=== PATIENT | female | born 1990 | race Caucasian/White ===

== ENCOUNTER 2016-11-29 10:47 | Emergency (ER) ==
[2016-11-29 10:48] VITALS: BMI 36.0
[2016-11-29 10:54] VITALS: BP 124/76; TEMP 95.1
[2016-11-29] MEDS ORDERED: NORFLEX IM STA (11:03)
[2016-11-29] MEDS ORDERED: TORADOL IM STA (11:03)
[2016-11-29 12:03] LABS: BILIRUBIN,URINE Negative (NEGATIVE); KETONES,URINE Negative (NEGATIVE); LEUKOCYTE ESTERASE ,URINE Negative (NEGATIVE); NITRITE,URINE Negative (NEGATIVE); PROTEIN,URINE Negative (NEGATIVE); URINE, BLOOD Negative (NEGATIVE)
[2016-11-29 12:04] LABS: URINE PREGNANCY INTERNAL QC INTERNAL QC VALID
[2016-11-29 12:06] LABS: ADD URINE MICROSCOPIC NO
[2016-11-29 12:08] LABS: BASOPHILS % (AUTO) 0.3 % (0.0-3.0); EOSINOPHILS # (AUTO) 0.1 K/ul (0.0-0.7); EOSINOPHILS % (AUTO) 1.4 % (0.0-7.0); HEMATOCRIT 41.6 % (37.0-47.0); HEMOGLOBIN 13.9 g/dl (12.0-16.0); IMMATURE GRANULOCYTE % (AUTO) 0.4 % (0.0-5.0); LYMPHOCYTES # (AUTO) 2.1 K/uL (0.60-3.4); LYMPHOCYTES % (AUTO) 26.8 (10.0-50.0); MEAN CORPUSCULAR HEMOGLOBIN 31.4 pg (27.0-31.0); MEAN CORPUSCULAR HGB CONC 33.4 (31.8-35.4); MEAN CORPUSCULAR VOLUME 93.9 fl (81.0-99.0); MONOCYTES # (AUTO) 0.4 K/uL (0.4-2.0); MONOCYTES % (AUTO) 4.5 (0-10); NEUTROPHILS # (AUTO) 5.2 K/ul (2.0-6.9); NEUTROPHILS % (AUTO) 66.6; PLATELET COUNT 209 10^3/uL (140-440); RED BLOOD COUNT 4.43 10^6/ul (4.20-5.40); WHITE BLOOD COUNT 7.86 K/ul (4.6-10.2)
[2016-11-29 12:17] LABS: ALBUMIN/GLOBULIN RATIO 1.33; BILIRUBIN,TOTAL 0.27 mg/dL (0.00-1.20); BUN/CREATININE RATIO 12.65; CREATININE 0.79 mg/dL (0.60-1.30)
--- NOTE | 2016-11-29 12:37 | ED.PDOC ---
General ED Provider: Dr. TYLER LOFTON Chief Complaint: Back Pain Stated Complaint: low back pain Time Seen by Physician: 11:00 (seen with nursing staff at all times negative trauma some urinary symp) Mode of Arrival: Walk-In Information Source: Patient Exam Limitations: No limitations Nursing and Triage Documentation Reviewed and Agree: Yes Musculoskeletal Complaint Exam - Back Pain Complaint/Exam Mechanism of Injury: Reports: No known trauma Onset/Duration: 1 day Symptoms Are: Still present Timing: Constant Episodes Lasting: Hours Initial Severity: Moderate Current Severity: Mild Location: Reports: Diffuse Character: Reports: Aching, Spasmodic, Stiffness Aggravating: Reports: Movements, Lifting, Bending, Walking Alleviating: Reports: Rest, Position Associated Signs and Symptoms: Reports: Flank pain. Denies: Swelling, Redness, Bruising, Fever, Weakness, Numbness, Tingling, Abdominal pain, Bladder incontinence, Bowel incontinence, Weight loss, Pain with weight bearing Related History: Reports: Similar episode TAD Risk Factors: Reports: None AAA Risk Factors: Reports: None Cauda Equina Risk Factors: Reports: None Epidural Abcess Risk Factors: Reports: None Related Surgical History: Reports: None Focal Tenderness: No Paraspinal Muscle Tenderness: No Paraspinal Muscle Spasm: No SLR Test: Right Negative, Left Negative Hip Motion Testing Pain: Right Negative, Left Negative Focal Weakness: Present: None Focal Sensory Loss: Present: None Gait: Present: Normal Differential Diagnoses: Renal Colic, Strain, Sprain Review of Systems - Review Of Systems Constitutional: Reports: No symptoms Eyes: Reports: No symptoms Ears, Nose, Mouth, Throat: Reports: No symptoms Respiratory: Reports: No symptoms Cardiac: Reports: No symptoms GI: Reports: Abdominal pain : Reports: Frequency, Flank pain Musculoskeletal: Reports: Back pain Skin: Reports: No symptoms Neurological: Reports: No symptoms Endocrine: Reports: No symptoms Hematologic/Lymphatic: Reports: No symptoms All Other Systems: Reviewed and Negative Past Medical History - Past Medical History Previously Healthy: Yes Endocrine: Reports: None Cardiovascular: Reports: None Respiratory: Reports: None Hematological: Reports: None Gastrointestinal: Reports: None Genitourinary: Reports: None Neuro/Psych: Reports: None Musculoskeletal: Reports: None Cancer: Reports: None Last Menstrual Period: last month - Surgical History General Surgical History: Reports: None - Family History Family History: Reports: None - Social History Smoking Status: Current some day smoker Hx Substance Use: No Alcohol Screening: Occasionally - Immunizations Tetanus Shot up to Date: Yes Physical Exam - Physical Exam Appearance: Well-appearing, No pain distress, Well-nourished Eyes: HAFSA, EOMI, Conjunctiva clear ENT: Ears normal, Nose normal, Oropharynx normal Respiratory: Airway patent, Breath sounds clear, Breath sounds equal, Respirations nonlabored Cardiovascular: RRR, Pulses normal, No rub, No murmur GI/: Soft, Nontender, No masses, Bowel sounds normal, No Organomegaly Musculoskeletal: Normal strength, ROM intact, No edema, No calf tenderness Skin: Warm, Dry, Normal color Neurological: Sensation intact, Motor intact, Reflexes intact, Cranial nerves intact, Alert, Oriented Psychiatric: Affect appropriate, Mood appropriate Interpretation - Radiology Interpretation Radiology Interpretation By: Radiologist Critical Care Note - Critical Care Note Total Time (mins): 0 Course - Course Hematology/Chemistry: 11/29/16 11:47 11/29/16 11:47 Orders, Labs, Meds: Lab Review 11/29/16 11/29/16 11:45 11:47 WBC 7.86 RBC 4.43 Hgb 13.9 Hct 41.6 MCV 93.9 MCH 31.4 H MCHC 33.4 RDW Coeff of Yesica 12.8 Plt Count 209 Immature Gran % (Auto) 0.4 Neut % (Auto) 66.6 Lymph % (Auto) 26.8 [place] % (Auto) 4.5 Eos % (Auto) 1.4 Baso % (Auto) 0.3 Immature Gran # (Auto) 0.0 Neut # 5.2 Lymph # 2.1 [place] # 0.4 Eos # 0.1 Baso # 0.0 Sodium 141 Potassium 4.0 Chloride 110 H Carbon Dioxide 21 Anion Gap 14.0 BUN 10 Creatinine 0.79 Estimated GFR (MDRD) 87.00 BUN/Creatinine Ratio 12.65 Glucose 90 Calcium 9.0 Total Bilirubin 0.27 AST 11 L ALT 15 Alkaline Phosphatase 86 Total Protein 7.0 Albumin 4.0 Globulin 3.0 Albumin/Globulin Ratio 1.33 Urine Color Yellow Urine Clarity Clear Urine pH 6.0 Ur Specific [place] 1.025 Urine Protein Negative Urine Glucose (UA) Negative Urine Ketones Negative Urine Blood Negative Urine Nitrite Negative Urine Bilirubin Negative Urine Urobilinogen 0.2 Ur Leukocyte Esterase Negative Urine Test Negative Orders Category Date Time Status CBC W/ AUTO DIFF Stat LAB 11/29/16 11:47 Completed COMPREHENSIVE METABOLIC PANEL Stat LAB 11/29/16 11:47 Completed URINALYSIS C & S IF INDICATED Stat LAB 11/29/16 11:45 Completed URINE Stat LAB 11/29/16 11:45 Completed Ketorolac Tromethamine [Toradol] MEDS 11/29/16 11:03 Discontinued 60 mg IM ONCE STA Orphenadrine Citrate [Norflex] MEDS 11/29/16 11:03 Discontinued 60 mg IM ONCE STA CT LUMBAR SPINE W/O CONTRAST Stat RADS 11/29/16 11:03 Completed Medications Discontinued Medications Generic Name Dose Route Start Last Admin Trade Name Juwanq PRN Reason Stop Dose Admin Ketorolac Tromethamine 60 mg 11/29/16 11:03 11/29/16 11:12 Toradol IM 11/29/16 11:04 60 mg ONCE STA Administration Orphenadrine Citrate 60 mg 11/29/16 11:03 11/29/16 11:11 Norflex IM 11/29/16 11:04 60 mg ONCE STA Administration Vital Signs: Temp Pulse Resp BP Pulse Ox 11/29/16 10:48 95.1 F L 96 H 20 124/76 100 Departure - Departure Time of Disposition: 13:17 (seen with sebastian hines in ed ) Disposition: HOME SELF-CARE Discharge Problem: Backache, Calculus of kidney Low back pain Qualifiers: Chronicity: unspecified Back pain laterality: midline Instructions: Low Back Strain (ED), Back Pain (ED), Lower Back Exercises (ED), Kidney Stones (ED) Condition: Good Pt referred to PMD for follow-up: Yes Additional Instructions: Please call your Family Physician as soon as possible to schedule a follow-up appointment. Allergies/Adverse Reactions: Allergies No Known Allergies Allergy (Unverified 10/21/13 20:11) Home Medications: Ambulatory Orders 1 [No Reported Medications] 10/21/13
--- NOTE | 2016-11-29 13:14 | CT ---
EXAM: CT LUMBAR SPINE HISTORY: No known injury, low back pain for 3 days, radiating down both legs TECHNIQUE: CT lumbar spine without contrast. 3-mm axial sections. Coronal and sagittal reformatio ns. COMPARISON: None FINDINGS: There is fragmentation of the lower synovial portion of the right sacroiliac joint which appears chr onic and may be related to old injury or arthropathy. There is at least mild bilateral periarticula r sclerosis of the sacroiliac joints consistent with sacroiliitis. No acute vertebral body fracture is seen. No loss of vertebral body height or spondylolisthesis. There is early facet arthropathy o f the [id number] spine. Pedicles appear congenitally short. Broad-based disc bulging at L3/L4 le ads to at least mild central canal stenosis and probable mild bilateral neural foraminal narrowing. There is also disc bulging at L4/L5 leading to at least mild central canal stenosis and bilateral n eural foraminal narrowing. At L5/S1, there is osteophytic spurring narrowing the left neural forame n. There is no paraspinal soft tissue abnormality. Incidental note of a few punctate right renal ca lculi. No noticeable hydronephrosis. IMPRESSION: 1. Degenerative changes of the [id number] spine as described. Correlation with MRI can be made g iven patient history. 2. Arthropathy of the sacroiliac joints. 3. Right nephrolithiasis incidentally noted.
== END 2016-11-29 13:30 | disposition home or self-care (01) ==
LOC: ED 10:47
DX: N20.0 Calculus of kidney (principal); M54.5 Low back pain; F17.210 Nicotine dependence, cigarettes, uncomplicated
CPT/HCPCS: 36415; 80053; 81001; 81025; 85025; 96372; 99283

== ENCOUNTER 2017-05-04 06:51 | Emergency (ER) ==
[2017-05-04 07:00] VITALS: BP 119/58; TEMP 97.5; BMI 41.1
--- NOTE | 2017-05-04 07:12 | ED.PDOC ---
General ED Provider: Dr. ORACIO HANLEY Chief Complaint: Abdominal Pain Stated Complaint: Abdominal pain Time Seen by Physician: 07:09 Mode of Arrival: Walk-In Information Source: Patient Nursing and Triage Documentation Reviewed and Agree: Yes Review of Systems - Review Of Systems Constitutional: Reports: Malaise GI: Reports: Abdominal pain, Diarrhea, Nausea, Poor appetite : Reports: No symptoms Musculoskeletal: Reports: No symptoms All Other Systems: Reviewed and Negative Past Medical History - Past Medical History Previously Healthy: Yes Endocrine: Reports: None Cardiovascular: Reports: None Respiratory: Reports: None Hematological: Reports: None Gastrointestinal: Reports: None Genitourinary: Reports: None Neuro/Psych: Reports: None Musculoskeletal: Reports: None Cancer: Reports: None Last Menstrual Period: 2 WEEKS AGO - Surgical History General Surgical History: Reports: None - Family History Family History: Reports: None - Social History Smoking Status: Current every day smoker, Heavy tobacco smoker Hx Substance Use: No Alcohol Screening: None - Immunizations Tetanus Shot up to Date: Yes Physical Exam - Physical Exam Appearance: Ill-appearing Ill-appearing: Mild Pain Distress: Moderate Eyes: HAFSA, EOMI ENT: Oropharynx normal Neck: Supple Respiratory: Airway patent, Breath sounds clear, Breath sounds equal Cardiovascular: RRR, Pulses normal GI/: Soft, No masses, Bowel sounds normal, Tender (R hypogastric; no rebound) Musculoskeletal: Normal strength, ROM intact, No edema Skin: Warm, Dry, Normal color Neurological: Sensation intact, Motor intact, Alert, Oriented Psychiatric: Affect appropriate, Mood appropriate Re-Evaluation - Re-Evaluation Time of Re-Evaluation: 15:00 Status: Unchanged Vital Signs Stable: Yes Appearance: Other (Recumbant with pillow held against abdomen) Critical Care Note - Critical Care Note Total Time (mins): 25 Course - Course Hematology/Chemistry: 05/04/17 07:35 05/04/17 07:35 Orders, Labs, Meds: Lab Review 05/04/17 05/04/17 05/04/17 07:15 07:15 07:35 WBC 8.58 RBC 4.16 L Hgb 13.2 Hct 39.6 MCV 95.2 MCH 31.7 H MCHC 33.3 RDW Coeff of Yesica 12.9 Plt Count 169 Immature Gran % (Auto) 0.3 Neut % (Auto) 72.8 Lymph % (Auto) 18.4 [place] % (Auto) 6.3 Eos % (Auto) 2.0 Baso % (Auto) 0.2 Immature Gran # (Auto) 0.0 Neut # 6.2 Lymph # 1.6 Cooper # 0.5 Eos # 0.2 Baso # 0.0 Sodium Potassium Chloride Carbon Dioxide Anion Gap BUN Creatinine Estimated GFR (MDRD) BUN/Creatinine Ratio Glucose Calcium Total Bilirubin AST ALT Alkaline Phosphatase Total Protein Albumin Globulin Albumin/Globulin Ratio Lipase Serum , Qual Negative Urine Color Yellow Urine Clarity Clear Urine pH 7.0 Ur Specific [place] 1.025 Urine Protein Negative Urine Glucose (UA) Negative Urine Ketones Negative Urine Blood Negative Urine Nitrite Negative Urine Bilirubin Negative Urine Urobilinogen 0.2 Ur Leukocyte Esterase Trace Urine Microscopic RBC 0-2 Urine Microscopic WBC 0-2 Ur Squamous Epith Cells 0-2 05/04/17 07:35 WBC RBC Hgb Hct MCV MCH MCHC RDW Coeff of Yesica Plt Count Immature Gran % (Auto) Neut % (Auto) Lymph % (Auto) [place] % (Auto) Eos % (Auto) Baso % (Auto) Immature Gran # (Auto) Neut # Lymph # Cooper # Eos # Baso # Sodium 139 Potassium 4.4 Chloride 107 Carbon Dioxide 25 Anion Gap 11.4 BUN 12 Creatinine 0.70 Estimated GFR (MDRD) 100.00 BUN/Creatinine Ratio 17.14 Glucose 101 Calcium 8.3 Total Bilirubin 0.33 AST 12 L ALT 14 Alkaline Phosphatase 78 Total Protein 6.0 L Albumin 3.2 L Globulin 2.8 Albumin/Globulin Ratio 1.14 Lipase 51 Serum , Qual Urine Color Urine Clarity Urine pH Ur Specific [place] Urine Protein Urine Glucose (UA) Urine Ketones Urine Blood Urine Nitrite Urine Bilirubin Urine Urobilinogen Ur Leukocyte Esterase Urine Microscopic RBC Urine Microscopic WBC Ur Squamous Epith Cells Orders Category Date Time Status CBC W/ AUTO DIFF Stat LAB 05/04/17 07:35 Completed COMPREHENSIVE METABOLIC PANEL Stat LAB 05/04/17 07:35 Completed LIPASE Stat LAB 05/04/17 07:35 Completed SERUM Stat LAB 05/04/17 07:15 Completed URINALYSIS C & S IF INDICATED Stat LAB 05/04/17 07:15 Completed Diphenhydramine Inj [Benadryl] MEDS 05/04/17 09:00 Discontinued 50 mg .ROUTE .STK-MED ONE Diphenhydramine Inj [Benadryl] 25 mg MEDS 05/04/17 08:56 Active 0.9 % Sodium Chloride [Sodium Chloride] 100 ml IV ONCE Hydromorphone HCl [Dilaudid 1 mg/ml Syringe] MEDS 05/04/17 07:19 Discontinued 0.5 mg IVP ONCE STA Ondansetron [Zofran Odt] MEDS 05/04/17 07:18 Discontinued 4 mg PO ONCE STA Sodium Chloride 0.9% [Sodium Chloride] 1,000 ml MEDS 05/04/17 07:[address] ABDOMEN/PELVIS WO CONTRAST Stat RADS 05/04/17 08:22 Completed Medications Generic Name Dose Route Start Last Admin Trade Name Freq PRN Reason Stop Dose Admin Diphenhydramine HCl 25 mg/ 100.5 mls @ 100 mls/hr 05/04/17 08:56 05/04/17 09: 03 Sodium Chloride IV 05/04/17 09:56 100 mls/hr ONCE STA Administration Discontinued Medications Generic Name Dose Route Start Last Admin Trade Name Freq PRN Reason Stop Dose Admin Hydromorphone HCl 0.5 mg 05/04/17 07:19 05/04/17 07:53 Dilaudid 1 Mg/Ml Syringe IVP 05/04/17 07:20 0.5 mg ONCE STA Administration Sodium Chloride 1,000 mls @ 1,000 mls/hr 05/04/17 07:18 05/04/17 07:49 Sodium Chloride IV 05/04/17 08:17 1,000 mls/hr BOLUS STA Administration Ondansetron HCl 4 mg 05/04/17 07:18 05/04/17 07:48 Zofran Odt PO 05/04/17 07:19 4 mg ONCE STA Administration Vital Signs: Temp Pulse Resp BP Pulse Ox 05/04/17 06:53 97.5 F L 94 H 24 119/58 L 97 Departure - Departure Time of Disposition: 09:25 Disposition: HOME SELF-CARE Discharge Problem: Enteritis Instructions: Enteritis (ED) Condition: Stable Pt referred to PMD for follow-up: Yes (Call for appointment) Additional Instructions: Small amounts of clear liquids over the next 12 hours; may advance diet slowly thereafter. Avoid spicey foods. Follow up with primary care provider; call for appointment. Use the Bentyl prescription - four times a day - five days. Prescriptions: Dicyclomine HCl [Bentyl] 10 mg PO Q6HR #20 capsule Allergies/Adverse Reactions: Allergies No Known Allergies Allergy (Verified 05/04/17 07:00) Home Medications: Ambulatory Orders Dicyclomine HCl [Bentyl] 10 mg PO Q6HR #20 capsule 05/04/17 Disposition Discussed With: Patient
[2017-05-04 07:31] LABS: BILIRUBIN,URINE Negative (NEGATIVE); KETONES,URINE Negative (NEGATIVE); LEUKOCYTE ESTERASE ,URINE Trace (NEGATIVE); NITRITE,URINE Negative (NEGATIVE); PROTEIN,URINE Negative (NEGATIVE); URINE, BLOOD Negative (NEGATIVE)
[2017-05-04 07:36] LABS: ADD URINE MICROSCOPIC YES
[2017-05-04 07:45] LABS: BASOPHILS % (AUTO) 0.2 % (0.0-3.0); EOSINOPHILS # (AUTO) 0.2 K/ul (0.0-0.7); HEMATOCRIT 39.6 % (37.0-47.0); HEMOGLOBIN 13.2 g/dl (12.0-16.0); IMMATURE GRANULOCYTE % (AUTO) 0.3 % (0.0-5.0); LYMPHOCYTES # (AUTO) 1.6 K/uL (0.60-3.4); LYMPHOCYTES % (AUTO) 18.4 (10.0-50.0); MEAN CORPUSCULAR HEMOGLOBIN 31.7 pg (27.0-31.0); MEAN CORPUSCULAR HGB CONC 33.3 (31.8-35.4); MEAN CORPUSCULAR VOLUME 95.2 fl (81.0-99.0); MONOCYTES # (AUTO) 0.5 K/uL (0.4-2.0); MONOCYTES % (AUTO) 6.3 (0-10); NEUTROPHILS # (AUTO) 6.2 K/ul (2.0-6.9); NEUTROPHILS % (AUTO) 72.8; PLATELET COUNT 169 10^3/uL (140-440); RED BLOOD COUNT 4.16 10^6/ul (4.20-5.40); WHITE BLOOD COUNT 8.58 K/ul (4.6-10.2)
[2017-05-04] MEDS: ZOFRAN ODT PO STA (07:48)
[2017-05-04] MEDS: SODIUM CHLORIDE 1,000 ML IV STA (07:49)
[2017-05-04] MEDS: DILAUDID 1 MG/ML SYRINGE IVP STA (07:53)
[2017-05-04 08:03] LABS: SERUM PREGNANCY INTERNAL QC INTERNAL QC VALID
[2017-05-04 08:04] LABS: ALBUMIN 3.2 g/dL (3.4-5.0); ALBUMIN/GLOBULIN RATIO 1.14; ANION GAP 11.4; BILIRUBIN,TOTAL 0.33 mg/dL (0.00-1.20); BUN/CREATININE RATIO 17.14; CALCIUM 8.3 mg/dL (8.2-10.2); CREATININE 0.7 mg/dL (0.60-1.30); POTASSIUM 4.4 mmol/L (3.5-5.10)
--- NOTE | 2017-05-04 08:52 | CT ---
EXAM: CT Abdomen without contrast. CT Pelvis without contrast. HISTORY: Generalized abdominal pain. COMPARISON: None available. TECHNIQUE: Multiple axial images of the abdomen and pelvis were obtained without intravenous contras t. Images were reformatted in the coronal plane. FINDINGS: Please note that evaluation of the abdominal and pelvic structures is limited due to lack of intravenous contrast. The lung bases are clear. Degenerative disc disease at L4-5 and L5-S1. No acute osseous abnormality is detected. The liver, gallbladder, pancreas, spleen, and adrenal glands demonstrate normal contour. Some areas of cortical irregularity noted in the right kidney with either cortical calcifications are nonobstruc ting right renal calculi. Left kidney demonstrates normal contour. No hydronephrosis identified. N o ureteral or or bladder calculi are seen. Bladder is normal. The bowel is normal in course and caliber without evidence for obstruction or inflammatory process. The appendix is normal. Uterus demonstrates normal contour. No free fluid or free air identified. Suspect previous tubal ligation. IMPRESSION: 1. No acute abnormality within the abdomen or pelvis. 2. Areas of right renal cortical scarring with renal cortical calcifications versus nonobstructing n ephrolithiasis.
[2017-05-04] MEDS: BENADRYL 25 MG in SODIUM CHLORIDE 100 ML IV STA (09:03)
[2017-05-04] MEDS: BENADRYL ONE (09:03)
== END 2017-05-04 09:47 | disposition home or self-care (01) ==
LOC: ED 06:51
DX: K52.9 Noninfective gastroenteritis and colitis, unspecified (principal); F17.210 Nicotine dependence, cigarettes, uncomplicated
CPT/HCPCS: 36415; 80053; 81001; 83690; 84703; 85025; 96361; 96365; 96375; 99284

== ENCOUNTER 2017-05-17 16:23 | Outpatient (CLI) ==
[2017-05-17 17:16] LABS: FLU INTERNAL QC INTERNAL QC VALID; MOLECULAR FLU A NEGATIVE BY NAAT (NEGATIVE); MOLECULAR FLU B NEGATIVE BY NAAT (NEGATIVE)
== END 2017-05-17 16:24 | disposition home or self-care (01) ==
LOC: LAB 16:23
PROVIDERS: ATTEND Nurse Practitioner Family
DX: R05 Cough (principal)
CPT/HCPCS: 87502; 87880